=== PATIENT | male | born 1945 | race Caucasian/White ===

== ENCOUNTER → 2024-01-30 07:34 | Outpatient (REF) | payer MEDICARE, SELFPAY | LOC: EMG 07:34 | PROVIDERS: ATTENDING PHYSICIAN Internal Medicine | DX: E11.42 Type 2 diabetes mellitus with diabetic polyneuropathy (principal); R20.0 Anesthesia of skin; M54.16 Radiculopathy, lumbar region | CPT/HCPCS: 95886; 95911 ==

== ENCOUNTER → 2024-02-15 09:48 | Outpatient (REF) | payer MEDICARE, SELFPAY | LOC: RAD 09:48 | PROVIDERS: ATTENDING PHYSICIAN Internal Medicine; FAMILY PHYSICIAN Internal Medicine | DX: R19.02 Left upper quadrant abdominal swelling, mass and lump (principal) | CPT/HCPCS: 76700 ==

== ENCOUNTER 2024-02-23 22:40 | Inpatient (IN) | payer MEDICARE, SELFPAY ==
[2024-02-23 17:34] VITALS: BP 118/59
[2024-02-23 19:47] LABS: % Basophils 0.2 % (0-2); % Eosinophils 0.2 % (0-6); % Immature Granulocytes 1.4 % (0-0.5); % Lymphocytes 13.4 % (20.5-51.1); % Neutrophils 73.8 % (42.2-75.2); Absolute Immature Granulocytes 0.2 10^3/uL (0-0.05); Absolute Lymphocytes 2.3 10^3/uL (1.2-3.4); Absolute Monocytes 1.9 10^3/uL (0.1-0.6); Absolute Neutrophils 12.4 10^3/uL (1.4-6.5); Hematocrit 37.4 % (39.0-52.0); Hemoglobin 12.7 g/dL (13.0-18.0); Mean Corpuscular Hgb 30.9 pg (27.0-31.0); Mean Platelet Volume 8.9 fL (7.4-10.4); Nucleated Red Blood Cells % 0 % (-); Platelet Count 347 10^3/uL (130-400); Red Blood Cell Count 4.11 10^6/uL (4.70-6.10); Red Cell Dist. Width 13.2 % (11.5-14.5); White Blood Cell Count 16.8 10^3/uL (4.8-10.8)
[2024-02-23] MEDS: FLAGYL 500 MG 100 IV (19:50)
[2024-02-23 19:54] VITALS: BP 105/58
[2024-02-23 19:55] VITALS: BP 105/58
--- NOTE | 2024-02-23 19:57 | ED.GENMED ---
History of Present Illness
General
Chief Complaint: Abdominal Pain
Source: patient and family
Exam Limitations: none
Time Seen by Provider: 02/23/24 19:08
Nursing documentation reviewed up to this point in time: agreed with
Travel History
Have you had any contact with someone who has COVID-19?: No
Do you have any symptoms of coronavirus? Fever > 100 degrees, chills, cough, shortness of breath, sore throat, loss of taste or smell, muscle aches, or headache?: No
History of Present Illness
History of Present Illness:
Patient presents ED for evaluation after outpatient CT scan revealed possible perforation of the bowel. Patient states that he has had ongoing abdominal pain for the past 2 weeks. Abdominal pain described as pressure, around his bellybutton/left
side, nonradiating, without any alleviating factors, but worse when standing up. Denies fever or chills. Denies nausea, vomiting, or diarrhea. Patient reports having had normal bowel movement today. Denies previous history of similar symptoms.
Denies recent change in medications or diet. Denies difficulty with urination.
Past History
Past History
ED Past Medical History: Arrthythmia, CAD, Cancer, CHF and Other (Sarcoidosis, tinnitus)
ED Past Surgical History: Cardiac and Urological
Social History
Tobacco: Non-smoker
Review of Systems
Review of Systems
Allergies reviewed?: Yes
All Other Systems: ROS reviewed and negative except as documented in HPI and ROS
Constitutional: Reports no symptoms; Denies fever
EENT: Reports no symptoms
Respiratory: Reports no symptoms
Cardiac: Reports no symptoms
ABD/GI: Reports abdominal pain; Denies vomiting or diarrhea
: Reports no symptoms
Musculoskeletal: Reports no symptoms
Skin: Reports no symptoms
Neurological: Reports no symptoms
Phy Exam
Physical Exam
Physical Exam:
Physical Exam
General: mild distress, not acutely ill. afebrile
Head: nc/at. eomi
Neck: supple. no meningeal signs.
Heart: s1/s2 regular rate and rhythm, no murmur. equal radial pulses.
Lungs: no acute respiratory distress. clear bilaterally
Abdomen: normal bowel sounds. focal tenderness to palpation above umbilicus.
Neuro: alert and oriented. no focal neurological deficits
Skin: no rash
Psychiatric: well kept. interactive and cooperative
Extremities: no edema. no calf tenderness.
Course
Orders/Labs/Results
Orders:
Orders
02/23/24 19:19
MetroNIDAZOLE 500 MG/100 ML [Flagyl 500 mg] 100 ml IV NOW
02/23/24 19:22
0.9% Sodium Chloride 500 ml [Nss] 500 ml IV BOLUS
02/23/24 19:37
Complete Blood Count/With Diff Urgent
Comprehensive Metabolic Panel Urgent
Digoxin Urgent
Lactic Acid Q4H
Comment: CANCEL 2nd LACTIC ACID IF 1st LACTIC ACID IS LESS THAN 2
Magnesium Urgent
Blood Culture Q30M
KENJI Source: Blood/Venous
Specimen Description:
Blood Culture Q30M
KENJI Source: Blood/Venous
Specimen Description:
02/23/24 19:55
Add On- LAB Urgent
Tests Added?: digoxin level
02/23/24 22:22
Admit/Transfer Patient As Directed
Co-Sign Provider:
Level of Care: Inpatient admission
Assign to:: Telemetry
Physician / Group: Hospitalist
Diagnosis: Bowel Abscess
Reason for Telemetry: Arrhythmia
Date to Stop Telemetry: 02/26/24
Time to Stop Telemetry: 11:00
Reason for Hospitalization: Bowel Abscess
Expected length of stay greater than two midnights?: Yes
ELOS- Estimated Length of Stay in days: 5
I certify the patient meets the requirements for IP care: Yes
02/23/24 22:23
Code Status As Directed
Resuscitation Status: Full Code
02/24/24 00:07
0.9% Sodium Chloride 1000 ml [Nss] 1,000 ml IV 125 mls/hr
Dextrose 50%-Water [Dextrose 50% Syringe] 12.5 grams IV [id number] PRN
Glucagon [GlucaGen] 1 mg IM PRN PRN
LevoFLOXacin 500 MG/100 ML [Levaquin] 500 mg in 100 ml IV ONCE
Morphine Sulfate 2 mg IV Q4HPRN PRN
02/24/24 00:07
CARDIOLOGY CONSULT Routine
Consulting Provider: Shila Alexis
Was physician already notified: No
Reason for consult: Surgical clearance - sarcoid with complete heart block and afib.
Consult Notification Routine
Specialty to Notify: Cardiology
Prothrombin Time Routine
Activity As Directed
Activity Level: With Assistance
Bedside Glucose Monitoring As Directed
Frequency: AC&HS
Additional Instructions:: Change to q6h if pt on TPN, tube feeding or not eating
Pneumatic Compression Sleeves As Directed
Type: Knee high
Vital Signs As Directed
Frequency: Per unit guidelines
DX Deep Vein Thrombosis Video Routine
02/24/24 04:00
MetroNIDAZOLE 500 MG/100 ML [Flagyl 500 mg] 100 ml IV Q8H
02/24/24 Breakfast
NPO
Allow oral meds: No
Allow clear liquids: Sips of Clears
Basic Metabolic Panel IN AM
Complete Blood Count/No Diff IN AM
Glycohemoglobin (HgbA1c) IN AM
Prothrombin Time IN AM
02/24/24 07:30
Insulin Aspart Corrective Low [Novolog Flexpen-Low Resistance] See Protocol SC AC
02/26/24 11:00
DC Protocol for Telemetry ONCE
Abnormal Lab Results
02/23/24
19:37
WBC 16.8 H 10^3/uL
(4.8-10.8)
RBC 4.11 L 10^6/uL
(4.70-6.10)
Hgb 12.7 L g/dL
(13.0-18.0)
Hct 37.4 L %
(39.0-52.0)
Abs Immat Gran (auto) 0.2 H 10^3/uL
(0-0.05)
Absolute Neuts (auto) 12.4 H 10^3/uL
(1.4-6.5)
Absolute Monos (auto) 1.9 H 10^3/uL
(0.1-0.6)
Immature Gran % 1.4 H %
(0-0.5)
Lymphocytes % 13.4 L %
(20.5-51.1)
Monocytes % 11.0 H %
(1.7-9.3)
Sodium 131 L mmol/L
(135-145)
Carbon Dioxide 21 L mmol/L
(22-30)
BUN 26 H mg/dl
(9-20)
Creatinine 1.4 H mg/dL
(0.7-1.3)
Total Protein 6.0 L g/dl
(6.3-8.2)
Digoxin 0.4 L ng/ml
(0.8-2.0)
02/23/24 19:37
02/23/24 19:37
Vital Signs
Initial and Last Documented VS:
Initial Vital Signs
Temp Pulse Resp BP Pulse Ox
98.9 F 84 18 118/59 98
02/23/24 17:34 02/23/24 17:34 02/23/24 17:34 02/23/24 17:34 02/23/24 17:34
Last Documented Vital Signs
Temp Pulse Resp BP Pulse Ox
98.1 F 84 19 129/67 97
02/24/24 00:13 02/24/24 00:13 02/24/24 00:13 02/24/24 00:13 02/24/24 00:13
MDM/Problems Addressed
MDM/Problems Addressed:
CT report reviewed and discussed with (surgery). Requests admission on iv abx, continue levaquin/flagyl, and will discuss treatment options after consultation, including potential IRAD drainage.
*Critical Care Note
Total Time (30-74mins, 75-104mins- exclusive of procedures): Not Applicable
ED Attending Note
-
Portions of this chart may have been created with voice recognition software.� Occasional wrong word or��sound alike� substitutions may have occurred due to the inherent limitations of voice recognition software.
Discharge Plan
Departure
Patient Disposition: Admit
Date of Disposition: 02/23/24
Time of Disposition: 21:19
Presentation/result/management discussed w/ accepting MD/DO: Hospitalist
Discharge Problem:
Perforated bowel
Interventions
Interventions:
*Risk Screen - Suicide Last Done: 02/23/24 17:34
*General Assessment Last Done: 02/23/24 17:34
*Neglect/Abuse Screening Last Done: 02/23/24 17:34
ED- Fall Risk Assessment Last Done: 02/24/24 00:09
*ED COVID-19 Vaccine History Last Done: 02/23/24 17:34
*Nursing Disposition Last Done: 02/24/24 00:09
BO-Jqdphp-Nuucrsbgmt Assessment Last Done: 02/23/24 21:29
Discharge Date and Time
Discharge Date/Time: 02/24/24 00:09
[2024-02-23 19:59] LABS: Lactic Acid 0.9 mmol/L (0.7-2.0)
[2024-02-23 20:00] VITALS: BP 103/58
[2024-02-23 20:06] LABS: ALT (SGPT) 11 U/L (0-50); AST (SGOT) 20 U/L (17-59); Alkaline Phosphatase 38 U/L (38-126); Blood Urea Nitrogen 26 mg/dl (9-20); Calcium 9.9 mg/dl (8.4-10.2); Carbon Dioxide 21 mmol/L (22-30); Chloride 102 mmol/L (98-107); Glucose 86 mg/dl (70-99); Potassium 3.7 mmol/L (3.5-5.1); Sodium 131 mmol/L (135-145); Total Bilirubin 0.7 mg/dl (0.2-1.3); eGFR 51.45
[2024-02-23 20:11] LABS: Albumin 3.6 g/dl (3.5-5.0)
[2024-02-23 20:28] LABS: Digoxin 0.4 ng/ml (0.8-2.0)
[2024-02-23] MEDS: NSS 500 IV (20:49)
[2024-02-23 21:00] VITALS: BP 114/61
--- NOTE | 2024-02-23 21:52 | HPS.HSE ---
Family Physician
-
Family Physician: Mark Donnelly
Chief Complaint
-
Abd pain
History of Present Illness
78 man comes to the ED after an outpatient CT scan revealed possible perforation of the bowel. He says that he has had ongoing abdominal pain for the past 2 weeks. The pain is described as pressure, wors around his bellybutton/left side,
non-radiating, without any alleviating factors, but worse when standing up. He Denies fever or chills, nausea, vomiting, or diarrhea. He states that he is having had normal bowel movements and had one today. He denies previous history of similar
symptoms, recent change in medications or diet or difficulty with urination. He does have a history of sarcoid and had complete heart block. He is pacer dependent and has 'had 7 pacemakers.' He was comfortable during my interview.
Medical History
Past Medical History
Past Medical History: Reports Other
Additional Past Medical History:
Arrthythmia (persistent afib),
CAD,
prostate Cancer (age 50),
CHF
Sarcoidosis,
tinnitus
ICD (implantable cardioverter-defibrillator) in place
Type 2 diabetes mellitus without complication, without long-term current use of insulin
History of right shoulder replacement
Essential hypertension
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
Mixed hyperlipidemia
Elevated serum creatinine
Neuropathy
Dysphagia, unspecified type
Past Surgical History: Reports Other
Additional Past Surgical History:
See above
Social History
Tobacco: Non-smoker
Alcohol: None
Drug: None
Personal:
Living: With Family
Family History
Family History: Not pertinent
Allergies / Home Medications
Allergies reflects when Allergies were last updated in [facility].
Home Medications with original date entered in [facility]
Allergy/Medication List:
Allergies
Allergy/AdvReac Type Severity Reaction Status Date / Time
Penicillins Allergy as a baby Verified 02/23/24 17:37
-
tolerates
ceftriaxone
Home Medications
digoxin 125 mcg (0.125 mg) tablet (Digitek) 0.125 mg PO DAILY Arrhythmia 03/18/14
fenofibrate nanocrystallized 145 mg tablet 145 mg PO DAILY High cholesterol 03/18/14
carvedilol 6.25 mg tablet 6.25 mg PO BID Blood pressure 02/08/23
irbesartan 150 mg-hydrochlorothiazide 12.5 mg tablet 1 tab PO DAILY Blood pressure 02/08/23
metformin 1,000 mg tablet 1,000 mg PO DAILY Diabetes 02/08/23
warfarin 5 mg tablet 2.5 mg PO HS Blood clot prevention/tx 02/08/23
cyanocobalamin (vitamin B-12) 2,500 mcg sublingual tablet 2,500 mcg sublingual DAILY 02/23/24
krill oil 750 mg PO DAILY 02/23/24
levofloxacin 500 mg tablet 500 mg PO DAILY 02/23/24
metronidazole 500 mg tablet 500 mg PO TID 02/23/24
gpnkdiezallq-iicqhowb-nacxua tablet 1 tab PO DAILY 02/23/24
polyethylene glycol 3350 17 gram oral powder packet (Miralax) 17 g PO DAILY PRN constipation 02/23/24
Review of Systems
-
History Source: Patient
A 12 point ROS was completed and negative except as noted: Yes
Physical Exam
Vital Signs
Vital Signs
Temp Pulse Resp BP Pulse Ox
98.1 F 80 20 114/61 99
02/23/24 19:55 02/23/24 21:15 02/23/24 21:15 02/23/24 21:00 02/23/24 21:15
Physical Exam
General: Well Developed, Well Nourished, No Apparent Distress, Comfortable and Conversant
HEENT: Nose Appears Normal, Ears Appear Normal and Hearing Impaired
Respiratory: Clear and Decreased Breath Sounds
Cardiac: S1/S2 and Irregular Rhythm
GI: Soft and Tender (LLQ, and umbilical area, no rebound)
Musculoskeletal: No Clubbing, No Cyanosis and No Edema
Skin: Warm and Dry
Neuro: Awake, Alert, Oriented and AO x 3
Psych: Calm
Laboratory Results
-
02/23/24 19:37
02/23/24 19:37
Laboratory Results
Lactic Acid 0.9 mmol/L (0.7-2.0) 02/23/24 19:37
Total Bilirubin 0.7 mg/dl (0.2-1.3) 02/23/24 19:37
AST 20 U/L (17-59) 02/23/24 19:37
ALT 11 U/L (0-50) 02/23/24 19:37
Alkaline Phosphatase 38 U/L (38-126) 02/23/24 19:37
Data Reviewed
-
Lab Data: Labs Reviewed by me
Impression/Plan
-
IMPRESSION:
78 man with 2 weeks of abd pain and an outpatient CT that shows:
Anterior midline central abdominal collection measuring up to 6.6 cm.
Differential includes contained small bowel perforation/abscess versus necrotic tumor.
No bowel obstruction. No free air or free fluid.
Diverticulosis without acute diverticulitis.
No obstructive uropathy.
PLAN:
1. CT finding, see differential above.
NPO
Surgical consult
IV antibiotics (levaquin / flagyl)
2. Coagulopathy on coumadin
Check INR
Will need heparin bridge if surgery is needed.
3. Pacemaker dependent, total heart block with afib
Cardiology consult for pre-surgical clearance
4. Diabetes, now NPO
Hold oral DM meds
Use supplemental insulin if needed
5. BUN/Creat ration > 20
IV saline overnight
Rpeat in am
6. Sodium 131 - likely hypovolemic hyponatremia, no food for 2 days
IV saline
Repeat in am
7. On digoxin
Hold while NPO
Resume after surgery
Full code
VCD for DVTp
--- NOTE | 2024-02-23 22:21 | HPS.HSE ---
Family Physician
-
Family Physician: Mark Donnelly
Medical History
Allergies / Home Medications
Allergies reflects when Allergies were last updated in [facility].
Home Medications with original date entered in [facility]
Physical Exam
Vital Signs
Vital Signs
Temp Pulse Resp BP Pulse Ox
98.1 F 80 20 114/61 99
02/23/24 19:55 02/23/24 21:15 02/23/24 21:15 02/23/24 21:00 02/23/24 21:15
Laboratory Results
-
02/23/24 19:37
02/23/24 19:37
Laboratory Results
Lactic Acid 0.9 mmol/L (0.7-2.0) 02/23/24 19:37
Total Bilirubin 0.7 mg/dl (0.2-1.3) 02/23/24 19:37
AST 20 U/L (17-59) 02/23/24 19:37
ALT 11 U/L (0-50) 02/23/24 19:37
Alkaline Phosphatase 38 U/L (38-126) 02/23/24 19:37
Impression/Plan
-
IMPRESSION:
PLAN:
[2024-02-24] VITALS (7 sets, daily range): BP systolic 111–138; BP diastolic 63–73; BMI 23.4
[2024-02-24] MEDS: NSS 1000 IV (00:17)
[2024-02-24] MEDS: LEVAQUIN 100 IV (00:37)
--- NOTE | 2024-02-24 00:52 | PTCARENOTE ---
Received patient from ED, AAOx4, Ambulated with steady gait from stretcher to bed. Oriented to unit, call stern in reach. Plan of care continues.
[2024-02-24] MEDS: FLAGYL 500 MG 100 IV ×3 (03:56→19:55)
[2024-02-24 05:32] LABS: Hematocrit 36.5 % (39.0-52.0); Mean Corp Hgb Conc. 32.9 g/dL (33.0-37.0); Mean Corpuscular Hgb 30.9 pg (27.0-31.0); Mean Corpuscular Volume 94.1 fL (80.0-94.0); Platelet Count 313 10^3/uL (130-400); Red Blood Cell Count 3.88 10^6/uL (4.70-6.10); Red Cell Dist. Width 13.1 % (11.5-14.5); White Blood Cell Count 14.6 10^3/uL (4.8-10.8)
[2024-02-24 05:43] LABS: INR 2.52; PT 27.4 Sec (11.4-14.6)
[2024-02-24 05:48] LABS: Glucose - Point of Care 82 mg/dl (70-99)
[2024-02-24 06:08] LABS: Blood Urea Nitrogen 21 mg/dl (9-20); Calcium 9.5 mg/dl (8.4-10.2); Carbon Dioxide 22 mmol/L (22-30); Chloride 106 mmol/L (98-107); Estimated Creatinine Clearance 49 ml/min; Glucose 77 mg/dl (70-99); Potassium 3.9 mmol/L (3.5-5.1); Sodium 135 mmol/L (135-145); eGFR > 60.00
--- NOTE | 2024-02-24 08:30 | W.PN.HOSP.TC ---
Today's Communication/Plan
-
see bold
Assessment / Plan
Assessment / Plan
HPI: 78 man comes to the ED after an outpatient CT scan revealed possible perforation of the bowel. He says that he has had ongoing abdominal pain for the past 2 weeks. The pain is described as pressure, wors around his bellybutton/left side,
non-radiating, without any alleviating factors, but worse when standing up. He Denies fever or chills, nausea, vomiting, or diarrhea. He states that he is having had normal bowel movements and had one today. He denies previous history of similar
symptoms, recent change in medications or diet or difficulty with urination. He does have a history of sarcoid and had complete heart block. He is pacer dependent and has 'had 7 pacemakers.' He was comfortable during my interview.
#Small bowel prior with fluid collection on CT concerning for abscess
Appreciate general surgery input, recommend clear liquid diet, IV antibiotics, hold Coumadin
After INR is less than 2, consult IR for drain
Trend fever and white count
#Paroxysmal atrial fibrillation on Coumadin
Continue amiodarone, Coreg
Hold Coumadin for procedure
#History of dysphagia
Eats a chopped diet
#Glucose intolerance
Hold metformin since pt received contrast 02/22, sliding scale insulin
#History of complete heart block
Has pacer defibrillator
#History of coronary artery disease/congestive heart failure
DVT prophylaxis�hold Coumadin for procedure, SCDs
Full Code
Physical Exam
General: No acute distress
HEENT: Normocephalic, Atraumatic, EOMI, MMM
Respiratory: Clear to Auscultation bilaterally
Cardiac: Normal S1/S2, Regular Rate and Rhythm
GI: Soft, tender at the mid left side, no masses guarding or rebound
Extremities: No Clubbing, Cyanosis, or Edema
Neuro: Nonfocal/Grossly Intact
Psych: Calm, Cooperative
Derm: No Visible lesions
Anticipated Discharge: 24 - 48 hours
Subjective/Interval History
-
Date of Service: February 24, 2024
Patient reports that his abdominal pain is tolerable. No fever, no nausea, no vomiting. No chest pain, no shortness of breath.
Objective Data
-
Labs:
Laboratory Results
02/24/24 02/24/24 02/24/24
00:07 05:12 05:13
WBC 14.6 H
Hgb 12.0 L
Hct 36.5 L
Plt Count 313
PT Cancelled 27.4 H
INR Cancelled 2.52
Sodium 135
Potassium 3.9
Chloride 106
Carbon Dioxide 22
BUN 21 H
Creatinine 1.2
Glucose 77
Calcium 9.5
Vital Signs:
Vital Signs
Temp Pulse Resp BP Pulse Ox
97.4 F 84 19 128/69 98
02/24/24 03:22 02/24/24 03:22 02/24/24 03:22 02/24/24 03:22 02/24/24 03:22
I&O
02/23/24 02/24/24 02/25/24
06:59 06:59 06:59
Intake Total 0 / 0
Balance 0 / 0
[2024-02-24 08:53] LABS: Glycohemoglobin (HgbA1c) 6.5 % (4.0-5.6)
--- NOTE | 2024-02-24 11:27 | CON.GS ---
Addendum entered and electronically signed by Davion Ortega MD 02/24/24 13:06:
I saw and examined the patient.
The Noise Tester's note was reviewed and I agree with the note.
Comment: Several weeks of abd pain without obstructive symptoms; outpt CT showed intraabdominal collection abutting sb and ab wall. Possible etiologies include perforated sb diverticulitis with contained abscess, malignancy, or other. Exam with
palpable mass at area of concern, ttp at this location but not elsewhere on the abdomen. Clinically stable, on warfarin with therapeutic INR. We discussed options for surgical and non-surgical mgmt. Given his cardiac history, he has a strong
preference to avoid surgery if possible.
Plan: CLD, IV abx, hold warfarin. When INR is <2, would proceed with IR drain. I advised the pt that this drain may lead to the development of an EC fistula. If this occurs, the fistula may heal without surgery or it may ultimately require surgery.
On the other hand, if the perforation has already sealed, we may be able to evacuate the collection with the drain and ultimately DC the drain without the development of ECF. In that case no further invasive mgmt would be required. He verbalized
understanding, all questions answered. NPO@NC in case he is able to get the drain tomorrow.
Original Note:
Consultation
-
Date/Time Consultation Requested: 02/24/24 1100
Requesting Provider: Do
Performing Provider: Nany Ortega
Medical History
-
Chief Complaint: Abdominal pain
History of Present Illness:
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 He had some mild
discomfort followed by sudden and severe sharp pain about 3 weeks ago. Since that time, he has had tenderness and discomfort. There is a palpable firmness at the location of tenderness a few inches above the umbilicus. He was undergoing outpatient
work up with his PCP which began earlier this week. He was trying clear liquids until CT imaging could be obtained, but notes that this did not help his pain. He had his outpatient CT yesterday with abnormal findings of abdominal fluid collection
and was advised to present through the ED for treatment. He denies nausea or vomiting. He has been passing flatus and stringy loose stools. He notes no fevers or chills.
Past Medical History
Past Medical History: Arrhythmias (afib on coumadin), CAD, CHF, HTN, NIDDM and Other (vertigo: following with ENT at [facility] for left ear with prior hospitalization for tympanic rupture, Sarcoid)
Past Surgical History: Cardiac (AICD (PPM since his 30's with multiple replacements)), Orthopedic (right shoulder) and Urological (transabdominal prostatectomy)
Social History
Tobacco: Non-Smoker
Alcohol: None
Family History
Family History: Reviewed & Not Pertinent
Allergies / Home Medications
Allergy/AdvReac Type Severity Reaction Status Date / Time
Penicillins Allergy as a baby Verified 02/23/24 17:37
-
tolerates
ceftriaxone
�Medication �Instructions �Recorded �Confirmed �Type
digoxin 125 mcg (0.125 mg) tablet 0.125 mg PO DAILY Arrhythmia 03/18/14 02/23/24 History
(Digitek)
fenofibrate nanocrystallized 145 145 mg PO DAILY High cholesterol 03/18/14 02/23/24 History
mg tablet
carvedilol 6.25 mg tablet 6.25 mg PO BID Blood pressure 02/08/23 02/23/24 History
irbesartan 150 1 tab PO DAILY Blood pressure 02/08/23 02/23/24 History
mg-hydrochlorothiazide 12.5 mg
tablet
metformin 1,000 mg tablet 1,000 mg PO DAILY Diabetes 02/08/23 02/23/24 History
warfarin 5 mg tablet 2.5 mg PO HS Blood clot 02/08/23 02/23/24 History
prevention/tx
cyanocobalamin (vitamin B-12) 2,500 mcg sublingual DAILY 02/23/24 02/23/24 History
2,500 mcg sublingual tablet Supplement
krill oil 750 mg PO DAILY Supplement 02/23/24 02/23/24 History
levofloxacin 500 mg tablet 500 mg PO DAILY Infection 02/23/24 02/23/24 History
metronidazole 500 mg tablet 500 mg PO TID Infection 02/23/24 02/23/24 History
kvlybfkytchp-iyzoypar-zesbzg tablet 1 tab PO DAILY Supplement 02/23/24 02/23/24 History
polyethylene glycol 3350 17 gram 17 g PO DAILY PRN constipation 02/23/24 02/23/24 History
oral powder packet (Miralax)
Review of Systems
-
History Source: Patient
All other systems: Negative unless noted
A 10 point review of systems was completed, and was negative except as per HPI.
Physical Exam
Vital Signs
Temp Pulse Resp BP Pulse Ox
98 F 83 18 138/73 100
02/24/24 08:36 02/24/24 08:36 02/24/24 08:36 02/24/24 08:36 02/24/24 08:36
02/23/24 02/24/24 02/25/24
06:59 06:59 06:59
Actual Weight 69.853 kg
Body Mass Index (BMI) 23.4
Lab Results
02/24/24 05:13
02/24/24 05:13
WBC 14.6 10^3/uL (4.8-10.8) H 02/24/24 05:13
Hgb 12.0 g/dL (13.0-18.0) L 02/24/24 05:13
Hct 36.5 % (39.0-52.0) L 02/24/24 05:13
Plt Count 313 10^3/uL (130-400) 02/24/24 05:13
Abs Immat Gran (auto) 0.2 10^3/uL (0-0.05) H 02/23/24 19:37
Neutrophils % 73.8 % (42.2-75.2) 02/23/24 19:37
Physical Exam
General: Well Developed and Well Nourished
HEENT: Moist Mucous Membranes
Respiratory: Non Labored Respirations
GI: Soft, Tender (upper midline) and Other (palpable firmess to upper midline abd )
Skin: Warm and Dry
Neuro: Awake, Alert and AO x 3
Psych: Calm
Data Reviewed
-
CT Scan: Image Personally Visualized and interpreted, Report Reviewed by me, Discussed with Physician and Discussed with Patient
Labs: Labs Reviewed by me, Discussed with Physician and Discussed with Patient
Old Records: Reviewed
Assessment / Plan
-
Assessment:
78 yo male with a h/o PPM, AFib on Coumadin (therapeutic INR of 2.52), CAD, NIDDM with neuropathy of the left leg, vertigo and transabdominal prostatectomy 18 years ago for prostate ca presents through the ED with 3 week history of upper mid
abdominal pain. He had some mild discomfort followed by sudden and severe sharp pain about 3 weeks ago. Since that time, he has had tenderness and discomfort to the upper abdomen managed with Tylenol at home, denies regular NSAID use. Outpatient CT
demonstrated an abdominal fluid collection: 5.1x6.6x5.6 likely abscess with possible fistula. Unclear etiology, suspect perforated Meckel's diverticulum vs less likely necrotic tumor. AFVSS. Leukocytosis present.
Plan:
Options discussed with patient including surgical exploration vs less invasive management with IR drainage and antibiotics. Opting at this time for management with IV abx and drain placement
Hold warfarin and follow INR's
IR drainage of abscess once INR low enough for procedure
Continue IV abx
Ok for clear liquids today
Medical management as per primary team
[2024-02-24] MEDS: NSS IV (11:29)
[2024-02-24 12:58] LABS: Glucose - Point of Care 116 mg/dl (70-99)
[2024-02-24] MEDS: LANOXIN 125 MCG PO (16:24)
[2024-02-24] MEDS: COREG 6.25 MG PO ×2 (16:24→19:55)
[2024-02-24] MEDS: THERAGRAN 1 TABLET PO (16:25)
[2024-02-24 17:00] LABS: Glucose - Point of Care 136 mg/dl (70-99)
--- NOTE | 2024-02-24 17:43 | CM ---
met with patient at bedside.he lives with his in house with l1 lisbeth,his bed and bath is on the first level,he amb i and is I with his adl's.he does have a cane and walker but doers not use them .his pcp is dr yary carrera and he uses [facility]
pharmacy in [place].he has never had a vn or been to ip rehab in past.patient is adm with small bowel abscess.he has a small bowel fluid collecltion and drain will be placed by ir.he is on clear liquids,iv abx,.plan home with vn vs home with no
needs.
[2024-02-24 21:12] LABS: Glucose - Point of Care 114 mg/dl (70-99)
[2024-02-24] MEDS: LEVAQUIN 50 IV (21:17)
[2024-02-25 03:31] VITALS: BP 118/73
[2024-02-25] MEDS: FLAGYL 500 MG 100 IV ×3 (04:59→19:38)
[2024-02-25 06:00] VITALS: BMI 23.2
[2024-02-25 06:10] LABS: Glucose - Point of Care 95 mg/dl (70-99)
[2024-02-25 07:25] VITALS: BP 122/69
--- NOTE | 2024-02-25 07:53 | W.PN.HOSP.TC ---
Today's Communication/Plan
-
Clear liquid diet today, n.p.o. after midnight
Vitamin K 5 mg p.o. x 1
Assessment / Plan
Assessment / Plan
HPI: 78 man comes to the ED after an outpatient CT scan revealed possible perforation of the bowel. He says that he has had ongoing abdominal pain for the past 2 weeks. The pain is described as pressure, wors around his bellybutton/left side,
non-radiating, without any alleviating factors, but worse when standing up. He Denies fever or chills, nausea, vomiting, or diarrhea. He states that he is having had normal bowel movements and had one today. He denies previous history of similar
symptoms, recent change in medications or diet or difficulty with urination. He does have a history of sarcoid and had complete heart block. He is pacer dependent and has 'had 7 pacemakers.' He was comfortable during my interview.
#Small bowel prior with fluid collection on CT concerning for abscess
Appreciate general surgery input, clear liquid diet, IV antibiotics, hold Coumadin
INR 2.42 today, was 2.52 yesterday
He is on levofloxacin which will make INR higher, give vitamin K 5 mg p.o. x 1
After INR is less than 2, plan for abdominal drain with IR
Trend fever and white count
#Paroxysmal atrial fibrillation on Coumadin
Continue amiodarone, Coreg
Hold Coumadin for procedure
#History of dysphagia
Eats a chopped diet
#Glucose intolerance
Hold metformin since pt received contrast 02/22, sliding scale insulin
Likely can resume 02/25 after procedure
#History of complete heart block
Has pacer defibrillator
#History of coronary artery disease/congestive heart failure
DVT prophylaxis�hold Coumadin for procedure, SCDs
Full Code
Total time spent to see the patient on the floor, examine the patient, review data and lab results, discuss treatment plan with patient, nursing staff around 50 minutes.
Physical Exam
General: No acute distress
HEENT: Normocephalic, Atraumatic, EOMI, MMM
Respiratory: Clear to Auscultation bilaterally
Cardiac: Normal S1/S2, Regular Rate and Rhythm
GI: Soft, tender at the mid left side, no masses guarding or rebound
Extremities: No Clubbing, Cyanosis, or Edema
Neuro: Nonfocal/Grossly Intact
Anticipated Discharge: > 48 hours
Subjective/Interval History
-
Date of Service: February 25, 2024
Abdominal pain tolerable, not worse with clear liquid diet yesterday. No fever, no chest pain, no shortness of breath. He is passing gas, no nausea, no vomiting.
Objective Data
-
Labs:
Laboratory Results
02/25/24
07:16
WBC Pending
Hgb Pending
Hct Pending
Plt Count Pending
PT Pending
INR Pending
Sodium Pending
Potassium Pending
Chloride Pending
Carbon Dioxide Pending
BUN Pending
Creatinine Pending
Glucose Pending
Calcium Pending
Vital Signs:
Vital Signs
Temp Pulse Resp BP Pulse Ox
97.7 F 84 19 118/73 98
02/25/24 03:31 02/25/24 03:31 02/25/24 03:31 02/25/24 03:31 02/25/24 03:31
I&O
02/24/24 02/25/24 02/26/24
06:59 06:59 06:59
Intake Total 0 / 0 2290 / 2290
Output Total 3850 / 3850
Balance 0 / 0 -1560 / -1560
[2024-02-25 08:10] LABS: INR 2.42; PT 26.2 Sec (11.4-14.6)
[2024-02-25 08:11] LABS: Hematocrit 37.9 % (39.0-52.0); Hemoglobin 12.5 g/dL (13.0-18.0); Mean Corpuscular Hgb 31.3 pg (27.0-31.0); Mean Corpuscular Volume 94.8 fL (80.0-94.0); Mean Platelet Volume 9.5 fL (7.4-10.4); Platelet Count 348 10^3/uL (130-400); Red Cell Dist. Width 13.1 % (11.5-14.5); White Blood Cell Count 11.6 10^3/uL (4.8-10.8)
[2024-02-25 08:36] LABS: Glucose - Point of Care 113 mg/dl (70-99)
[2024-02-25 08:44] LABS: Blood Urea Nitrogen 15 mg/dl (9-20); Calcium 9.1 mg/dl (8.4-10.2); Carbon Dioxide 21 mmol/L (22-30); Chloride 109 mmol/L (98-107); Estimated Creatinine Clearance 65 ml/min; Glucose 96 mg/dl (70-99); Phosphorus 2.8 mg/dl (2.5-4.5); Potassium 4.1 mmol/L (3.5-5.1); Sodium 136 mmol/L (135-145); eGFR > 60.00
[2024-02-25] MEDS: FLUSH (NSS) 1 FLUSH IV (08:53)
[2024-02-25] MEDS: COREG 6.25 MG PO ×2 (08:53→19:37)
[2024-02-25] MEDS: VITAMIN B-12 2500 MCG PO (08:54)
--- NOTE | 2024-02-25 10:35 | W.PN.GS2 ---
Addendum entered and electronically signed by Mateo Rosado MD 02/25/24 13:11:
I saw and examined the patient.
The PA's note was reviewed and I agree with the note.
Comment:
No overnight events, no N/V, passing flatus, pain controlled
AFVSS, ABD S/ND/mildly to moderately TTP in the periumbilical quadrant, no R/G
WBC 11.6, from 14.6, Cr 0.9, INR 2.4
� Continue n.p.o. with IVF, okay for moist swabs and p.o. meds
� Continue pain control with Tylenol, Oxy and morphine as needed
� Continue home meds
� Continue IV Levaquin/Flagyl
�Awaiting IR guided drainage once INR normalizes
� Hold DVT PPx; INR remains elevated, repeat in a.m.
� OOB/IS
� Appreciate hospitalist; currently stable, no indication for acute surgical intervention, continue nonop measures
Original Note:
Today's Communication / Plan
-
Continue ABX
Trend INR
Assessment / Plan
-
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 CT showed
intraabdominal collection abutting the small bowel and abdominal wall. Unclear etiology although likely small bowel diverticulitis. Malignancy remains in differential.
AFVSS
Labs stable with WBC trending down.
Pain only with palpation of abdomen
--Would not advance diet beyond clears
--Hold warfarin and trend INR's
--IR drainage of abscess once INR <2, may ultimately require surgery pending course but no surgical intervention planned at this time
--Multimodal analgesics prn
--Medical management as per primary team
Subjective Data
-
Date of Service: February 25, 2024
Patient seen and examined at bedside with Dr. Rosado. Denies n/v. Passing flatus. Abdominal pain only with palpation of abdomen, otherwise no discomfort.
Objective Data
-
Intake and Output
02/24/24 02/25/24 02/26/24
06:59 06:59 06:59
Intake Total 0 / 0 2290 / 2290
Output Total 3850 / 3850
Balance 0 / 0 -1560 / -1560
Intake:
Oral fluids 0 / 0 1440 / 1440
IV fluids (Total) 500 / 500
IV piggybacks 350 / 350
Output:
Urine, Voided 3850 / 3850
Other:
Number of approximated MODERATE 1
amounts of urine
Vital Signs
Temp Pulse Resp BP Pulse Ox
97.7 F 82 18 122/69 97
02/25/24 07:25 02/25/24 08:53 02/25/24 07:25 02/25/24 08:53 02/25/24 07:25
Lab Results
02/25/24 07:16
02/25/24 07:16
Calcium 9.1 mg/dl (8.4-10.2) 02/25/24 07:16
Phosphorus 2.8 mg/dl (2.5-4.5) 02/25/24 07:16
Magnesium 2.0 mg/dl (1.6-2.3) 02/25/24 07:16
Total Bilirubin 0.7 mg/dl (0.2-1.3) 02/23/24 19:37
AST 20 U/L (17-59) 02/23/24 19:37
ALT 11 U/L (0-50) 02/23/24 19:37
Alkaline Phosphatase 38 U/L (38-126) 02/23/24 19:37
Total Protein 6.0 g/dl (6.3-8.2) L 02/23/24 19:37
Albumin 3.6 g/dl (3.5-5.0) 02/23/24 19:37
Physical Exam
-
NAD
ABD soft, tender to the upper abdomen just left of midline with palpable area of fluctuance
[2024-02-25] MEDS: THERAGRAN 1 TABLET PO (10:46)
[2024-02-25 11:16] VITALS: BMI 23.2
[2024-02-25 11:20] VITALS: BP 113/65
[2024-02-25 11:54] LABS: Glucose - Point of Care 138 mg/dl (70-99)
[2024-02-25] MEDS: LANOXIN 125 MCG PO (12:54)
[2024-02-25] MEDS: MEPHYTON 5 MG PO (12:54)
[2024-02-25 15:25] VITALS: BP 115/67
[2024-02-25 17:05] LABS: Glucose - Point of Care 114 mg/dl (70-99)
[2024-02-25] MEDS: LEVAQUIN 50 IV (21:11)
[2024-02-25 23:09] LABS: Glucose - Point of Care 165 mg/dl (70-99)
[2024-02-25 23:22] VITALS: BP 112/70
[2024-02-26] VITALS (7 sets, daily range): BP systolic 80–139; BP diastolic 63–76; BMI 23.3
[2024-02-26] MEDS: FLAGYL 500 MG 100 IV ×3 (04:48→20:33)
[2024-02-26 05:53] LABS: Glucose - Point of Care 100 mg/dl (70-99)
[2024-02-26 08:23] LABS: Glucose - Point of Care 103 mg/dl (70-99)
[2024-02-26] MEDS: COREG 6.25 MG PO ×2 (08:28→20:32)
[2024-02-26] MEDS: VITAMIN B-12 2500 MCG PO (08:29)
[2024-02-26] MEDS: FLUSH (NSS) 1 FLUSH IV (08:29)
[2024-02-26] MEDS: THERAGRAN 1 TABLET PO (08:29)
[2024-02-26 08:37] LABS: Hematocrit 38.2 % (39.0-52.0); Hemoglobin 12.5 g/dL (13.0-18.0); Mean Corp Hgb Conc. 32.7 g/dL (33.0-37.0); Mean Corpuscular Hgb 30.6 pg (27.0-31.0); Mean Corpuscular Volume 93.6 fL (80.0-94.0); Mean Platelet Volume 9.1 fL (7.4-10.4); Platelet Count 387 10^3/uL (130-400); Red Blood Cell Count 4.08 10^6/uL (4.70-6.10); Red Cell Dist. Width 13.2 % (11.5-14.5); White Blood Cell Count 11.3 10^3/uL (4.8-10.8)
[2024-02-26 08:44] LABS: INR 1.77; PT 20.5 Sec (11.4-14.6)
[2024-02-26 08:54] LABS: Blood Urea Nitrogen 14 mg/dl (9-20); Calcium 9.4 mg/dl (8.4-10.2); Carbon Dioxide 23 mmol/L (22-30); Chloride 109 mmol/L (98-107); Estimated Creatinine Clearance 65 ml/min; Glucose 105 mg/dl (70-99); Magnesium 1.9 mg/dl (1.6-2.3); Phosphorus 2.7 mg/dl (2.5-4.5); Potassium 3.9 mmol/L (3.5-5.1); Sodium 136 mmol/L (135-145); eGFR > 60.00
--- NOTE | 2024-02-26 10:22 | W.PN.GS2 ---
Addendum entered and electronically signed by Mateo Rosado MD 02/26/24 10:51:
I saw and examined the patient.
The RETAIL SALESWORKER's note was reviewed and I agree with the note.
Comment:
No overnight events, no N/V, passing flatus, pain controlled
AFVSS, ABD S/ND/mildly TTP in the periumbilical quadrant, no R/G
WBC 11.3, from 11.6, Cr 0.9, INR 1.7
� Continue n.p.o. with IVF, okay for moist swabs and p.o. meds; ok for clears after IR drain
� Continue pain control with Tylenol, Oxy and morphine as needed
� Continue home meds
� Continue IV Levaquin/Flagyl
� IR guided drainage today
� Hold DVT PPx; start after IR-guided until INR becomes therapeutic
� OOB/IS
� Appreciate hospitalist; currently stable, no indication for acute surgical intervention, continue nonop measures
Original Note:
Today's Communication / Plan
-
IR drainage
Assessment / Plan
-
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 CT showed
intraabdominal collection abutting the small bowel and abdominal wall. Unclear etiology although likely small bowel diverticulitis. Malignancy remains in differential.
AFVSS
Mild leukocytosis
INR now subtherapeutic
Pain only with palpation of abdomen
--Clears
--IR drainage of abscess, may ultimately require surgery pending course but no surgical intervention planned at this time (reached out to IR cobol application developer to notify of this AM's INR level)
--Continue to hold warfarin
--Multimodal analgesics prn
--Medical management as per primary team
Subjective Data
-
Date of Service: February 26, 2024
Patient seen and examined at bedside with Dr. Rosado. Denies n/v. No changes to pain. Passing flatus, no BM today.
Objective Data
-
Intake and Output
02/25/24 02/26/24 02/27/24
06:59 06:59 06:59
Intake Total 2290 / 2290 1940 / 1940
Output Total 3850 / 3850 1300 / 1300
Balance -1560 / -1560 640 / 640
Intake:
Oral fluids 1440 / 1440 1590 / 1590
IV fluids (Total) 500 / 500
IV piggybacks 350 / 350 350 / 350
Output:
Urine, Voided 3850 / 3850 1300 / 1300
Other:
Number of approximated MODERATE 1
amounts of urine
Number of approximated LARGE 2
amounts of urine
Vital Signs
Temp Pulse Resp BP Pulse Ox
97.6 F 83 16 121/75 99
02/26/24 07:03 02/26/24 08:28 02/26/24 07:03 02/26/24 08:28 02/26/24 07:03
Lab Results
02/26/24 08:09
02/26/24 08:09
Calcium 9.4 mg/dl (8.4-10.2) 02/26/24 08:09
Phosphorus 2.7 mg/dl (2.5-4.5) 02/26/24 08:09
Magnesium 1.9 mg/dl (1.6-2.3) 02/26/24 08:09
Total Bilirubin 0.7 mg/dl (0.2-1.3) 02/23/24 19:37
AST 20 U/L (17-59) 02/23/24 19:37
ALT 11 U/L (0-50) 02/23/24 19:37
Alkaline Phosphatase 38 U/L (38-126) 02/23/24 19:37
Total Protein 6.0 g/dl (6.3-8.2) L 02/23/24 19:37
Albumin 3.6 g/dl (3.5-5.0) 02/23/24 19:37
Physical Exam
-
NAD
ABD soft, tender to the upper abdomen just left of midline with palpable area of fluctuance
[2024-02-26 11:20] LABS: Glucose - Point of Care 114 mg/dl (70-99)
--- NOTE | 2024-02-26 11:32 | PTCARENOTE ---
Pt transported to IR at this time with chart.
--- NOTE | 2024-02-26 13:30 | PTCARENOTE ---
Received report from Shilpa in IR. Pt arrived back to rm [id number] at this time. Pt AAOx3, lungs are CTA, vital signs noted and documented. No N/V, tenderness remains of left upper quadrant, unchanged from earlier in the shift. Educated pt on bedrest
orders for 2 hrs, Que drain, and clear liquid diet. Pt verbalizes understanding, call stern within reach, will monitor.
[2024-02-26] MEDS: LANOXIN 125 MCG PO (13:40)
--- NOTE | 2024-02-26 14:36 | W.PN.HOSP.TC ---
Today's Communication/Plan
-
see bold
Assessment / Plan
Assessment / Plan
HPI: 78 man comes to the ED after an outpatient CT scan revealed possible perforation of the bowel. He says that he has had ongoing abdominal pain for the past 2 weeks. The pain is described as pressure, wors around his bellybutton/left side,
non-radiating, without any alleviating factors, but worse when standing up. He Denies fever or chills, nausea, vomiting, or diarrhea. He states that he is having had normal bowel movements and had one today. He denies previous history of similar
symptoms, recent change in medications or diet or difficulty with urination. He does have a history of sarcoid and had complete heart block. He is pacer dependent and has 'had 7 pacemakers.' He was comfortable during my interview.
#Small bowel prior with fluid collection on CT concerning for abscess
Appreciate general surgery input
INR 1.77 today, s/p vit K 5 mg po 02/24, down from 2.42, was 2.52
S/p abdominal drain by IR 02/25, draining purulent appearing fluid
Continue IV Flagyl/Levaquin, f/u abd fluid culture
Clear liquid diet per surgery, trend fever and white count
#Paroxysmal atrial fibrillation on Coumadin
Continue amiodarone, Coreg
Resume Coumadin, trend INR
#History of dysphagia
Eats a chopped diet
#Glucose intolerance
Hold metformin since pt received contrast 02/22, sliding scale insulin
Resume metformin
#History of complete heart block
Has pacer defibrillator
#History of coronary artery disease/congestive heart failure
DVT prophylaxis�subcu Lovenox until INR therapeutic on Coumadin
Full Code
Total time spent to see the patient on the floor, examine the patient, review data and lab results, discuss treatment plan with patient, nursing staff around 50 minutes.
Physical Exam
General: No acute distress
HEENT: Normocephalic, Atraumatic, EOMI, MMM
Respiratory: Clear to Auscultation bilaterally
Cardiac: Normal S1/S2, Regular Rate and Rhythm
GI: Soft, tender at the mid left side, no masses guarding or rebound
+abd drain
Extremities: No Clubbing, Cyanosis, or Edema
Neuro: Nonfocal/Grossly Intact
Anticipated Discharge: 24 - 48 hours
Subjective/Interval History
-
Date of Service: February 26, 2024
Patient is abdominal soreness is tolerable. No fever, no nausea, no vomiting. No chest pain, no shortness of breath.
Objective Data
-
Labs:
Laboratory Results
02/26/24
08:09
WBC 11.3 H
Hgb 12.5 L
Hct 38.2 L
Plt Count 387
PT 20.5 H
INR 1.77
Sodium 136
Potassium 3.9
Chloride 109 H
Carbon Dioxide 23
BUN 14
Creatinine 0.9
Glucose 105 H
Calcium 9.4
Vital Signs:
Vital Signs
Temp Pulse Resp BP Pulse Ox
97.5 F 82 18 118/70 98
02/26/24 14:30 02/26/24 14:30 02/26/24 14:30 02/26/24 14:30 02/26/24 14:30
I&O
02/25/24 02/26/24 02/27/24
06:59 06:59 06:59
Intake Total 2290 / 2290 1940 / 1940 95 / 95
Output Total 3850 / 3850 1300 / 1300
Balance -1560 / -1560 640 / 640 95 / 95
[2024-02-26 18:00] LABS: Glucose - Point of Care 148 mg/dl (70-99)
[2024-02-26] MEDS: LOVENOX 40 MG SC (18:03)
[2024-02-26] MEDS: COUMADIN 2.5 MG PO (18:04)
[2024-02-26] MEDS: LEVAQUIN IV (21:51)
[2024-02-26 22:50] LABS: Glucose - Point of Care 201 mg/dl (70-99)
[2024-02-26] MEDS: LEVAQUIN 50 IV (23:26)
[2024-02-27] MEDS: FLAGYL 500 MG 100 IV ×3 (03:33→20:30)
[2024-02-27 03:37] VITALS: BP 116/71
--- NOTE | 2024-02-27 05:49 | W.PN.HOSP.TC ---
Today's Communication/Plan
-
cont abx
follow cultures
diet, drain care as per surgery
pain control
cont warfarin, daily INR checks
Assessment / Plan
Assessment / Plan
HPI: 78 man comes to the ED after an outpatient CT scan revealed possible perforation of the bowel. He says that he has had ongoing abdominal pain for the past 2 weeks. The pain is described as pressure, wors around his bellybutton/left side,
non-radiating, without any alleviating factors, but worse when standing up. He Denies fever or chills, nausea, vomiting, or diarrhea. He states that he is having had normal bowel movements and had one today. He denies previous history of similar
symptoms, recent change in medications or diet or difficulty with urination. He does have a history of sarcoid and had complete heart block. He is pacer dependent and has 'had 7 pacemakers.' He was comfortable during my interview.
#Small bowel prior with fluid collection on CT concerning for abscess
Appreciate general surgery input
INR 1.77 today, s/p vit K 5 mg po 02/24, down from 2.42, was 2.52
S/p abdominal drain by IR 02/25, draining purulent appearing fluid
Continue IV Flagyl/Levaquin, f/u abd fluid culture
Clear liquid diet advanced to full liquid as per surgery, trend fever and white count
#Paroxysmal atrial fibrillation on Coumadin
Continue amiodarone, Coreg
Cont Coumadin, trend INR
#History of dysphagia
Typically Eats a chopped diet
#Glucose intolerance
Metformin on hold since pt received contrast 02/22
sliding scale insulin
#History of complete heart block
Has pacer defibrillator
#History of coronary artery disease/congestive heart failure
DVT prophylaxis�subcu Lovenox until INR therapeutic on Coumadin
Full Code
Total time spent to see the patient on the floor, examine the patient, review data and lab results, discuss treatment plan with patient, nursing staff around 52 minutes.
Physical Exam
General: No acute distress
HEENT: Normocephalic, Atraumatic, EOMI, MMM
Respiratory: Clear to Auscultation bilaterally
Cardiac: Normal S1/S2, Regular Rate and Rhythm
GI: Soft, tender at the mid left side, no masses guarding or rebound
+abd drain
Extremities: No Clubbing, Cyanosis, or Edema
Neuro: Nonfocal/Grossly Intact
Anticipated Discharge: 24 - 48 hours
Subjective/Interval History
-
Date of Service: February 27, 2024
Reports overall feeling well. Tolerating diet so far. Reports Flatus but no bowel movement. No pain at rest.
Objective Data
-
Labs:
Laboratory Results
02/27/24
06:00
WBC Pending
Hgb Pending
Hct Pending
Plt Count Pending
PT Pending
INR Pending
Sodium Pending
Potassium Pending
Chloride Pending
Carbon Dioxide Pending
BUN Pending
Creatinine Pending
Glucose Pending
Calcium Pending
Vital Signs:
Vital Signs
Temp Pulse Resp BP Pulse Ox
98 F 82 19 116/71 97
02/27/24 03:37 02/27/24 03:37 02/27/24 03:37 02/27/24 03:37 02/27/24 03:37
I&O
02/25/24 02/26/24 02/27/24
06:59 06:59 06:59
Intake Total 2290 / 2290 1940 / 1940 1525 / 1525
Output Total 3850 / 3850 1300 / 1300 1817 / 1817
Balance -1560 / -1560 640 / 640 -292 / -292
[2024-02-27 06:00] VITALS: BMI 23.1
[2024-02-27 07:41] LABS: Hematocrit 38.6 % (39.0-52.0); Hemoglobin 12.8 g/dL (13.0-18.0); Mean Corp Hgb Conc. 33.2 g/dL (33.0-37.0); Mean Corpuscular Hgb 31.2 pg (27.0-31.0); Mean Corpuscular Volume 94.1 fL (80.0-94.0); Mean Platelet Volume 9.2 fL (7.4-10.4); Platelet Count 355 10^3/uL (130-400); Red Cell Dist. Width 13.2 % (11.5-14.5); White Blood Cell Count 8.3 10^3/uL (4.8-10.8)
[2024-02-27 07:51] LABS: INR 1.53; PT 18.2 Sec (11.4-14.6)
[2024-02-27 08:04] LABS: Glucose - Point of Care 104 mg/dl (70-99)
[2024-02-27 08:06] VITALS: BP 119/74
[2024-02-27] MEDS: COREG 6.25 MG PO ×2 (08:31→20:30)
[2024-02-27] MEDS: VITAMIN B-12 2500 MCG PO (08:31)
[2024-02-27] MEDS: THERAGRAN 1 TABLET PO (08:31)
[2024-02-27 08:53] LABS: Blood Urea Nitrogen 13 mg/dl (9-20); Calcium 9.5 mg/dl (8.4-10.2); Carbon Dioxide 20 mmol/L (22-30); Chloride 109 mmol/L (98-107); Estimated Creatinine Clearance 74 ml/min; Glucose 101 mg/dl (70-99); Potassium 3.9 mmol/L (3.5-5.1); Sodium 136 mmol/L (135-145); eGFR > 60.00
--- NOTE | 2024-02-27 09:14 | W.PN.GS2 ---
Addendum entered and electronically signed by Robibe Flores MD 02/27/24 10:30:
I saw and examined the patient independently.
The Operator Prefinish's note was reviewed and I agree with the note, assessment and plan except where noted below.
Comment: This is a 78-year-old male with a history of A-fib on Coumadin, CAD, diabetes, transabdominal prostatectomy who presents with a 3-week history of upper mid abdominal pain found to have mid small bowel abscess and phlegmon concerning for
perforated small bowel diverticulitis versus small bowel mass/malignancy now status post IR drain.
I did review his CT scan from February 2014 and no obvious diverticulum noted then.
Leukocytosis resolved, patient overall feeling better.
Prelim cultures with GPC's
Okay for full liquid diet, can advance as tolerated. Monitor for ileus.
Drain to bulb suction, irrigate with 10 cc saline daily.
Will continue nonoperative management for now.
Original Note:
Today's Communication / Plan
-
Continue drain
Full liquid diet
Assessment / Plan
-
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 CT showed
intraabdominal collection abutting the small bowel and abdominal wall. Unclear etiology although likely small bowel diverticulitis. Malignancy remains in differential.
AFVSS
Leukocytosis now resolved
PPD #1 IR drainage with fluid cx pending, preliminary with gram + rods/cocci
--Advance to FLD. High risk for ileus, follow for n/v/distention
--Drain care as per IR. Will consult CM to arrange VNA as he will likely be discharged with drain in place
--May ultimately require surgery pending course but no surgical intervention planned at this time
--Multimodal analgesics prn
--Continue antibiotics
--Medical management as per primary team
Subjective Data
-
Date of Service: February 27, 2024
Patient seen and examined at bedside with Dr. Philip. Arce n/v. Tolerating clears. Passing flatus, no stool for a few days. No fevers/chills.
Objective Data
-
Intake and Output
02/26/24 02/27/24 02/28/24
06:59 06:59 06:59
Intake Total 1940 / 1940 1525 / 1525
Output Total 1300 / 1300 1817 / 1817
Balance 640 / 640 -292 / -292
Intake:
Oral fluids 1590 / 1590 1080 / 1080
IV fluids (Total)
NSS / 85
IV piggybacks 350 / 350 350 / 350
Amount instilled into Drain (
Total)
Left Middle Abdomen Bernardo-
Roque A Placed in IR
Output:
Drain Output (Total)
Left Middle Abdomen Bernardo-
Roque A Placed in IR
Urine, Voided 1300 / 1300 1800 / 1800
Other:
Number of approximated MODERATE 1
amounts of urine
Number of approximated LARGE 2
amounts of urine
Vital Signs
Temp Pulse Resp BP Pulse Ox
97.4 F 82 18 119/74 98
02/27/24 08:06 02/27/24 08:06 02/27/24 08:06 02/27/24 08:06 02/27/24 08:06
Lab Results
02/27/24 07:16
02/27/24 07:16
Calcium 9.5 mg/dl (8.4-10.2) 02/27/24 07:16
Phosphorus 2.7 mg/dl (2.5-4.5) 02/26/24 08:09
Magnesium 1.9 mg/dl (1.6-2.3) 02/26/24 08:09
Total Bilirubin 0.7 mg/dl (0.2-1.3) 02/23/24 19:37
AST 20 U/L (17-59) 02/23/24 19:37
ALT 11 U/L (0-50) 02/23/24 19:37
Alkaline Phosphatase 38 U/L (38-126) 02/23/24 19:37
Total Protein 6.0 g/dl (6.3-8.2) L 02/23/24 19:37
Albumin 3.6 g/dl (3.5-5.0) 02/23/24 19:37
Physical Exam
-
NAD
ABD soft, tender to drain site, ND, IR drain with purulent dk grady fluid
--- NOTE | 2024-02-27 10:14 | CM ---
Patient seen bedside, reports no needs to CM at this time. CM offered VN to patient for drain care, patient declining. Patient reports he resides at home with his , feels they can manage drain care without VN. CM will continue to follow for
discharge planning needs.
Plan; home with , declining VN.
[2024-02-27 12:06] LABS: Glucose - Point of Care 144 mg/dl (70-99)
[2024-02-27] MEDS: LANOXIN 125 MCG PO (12:41)
[2024-02-27 12:59] VITALS: BP 113/69
[2024-02-27 15:45] VITALS: BP 111/61
[2024-02-27 17:12] LABS: Glucose - Point of Care 145 mg/dl (70-99)
[2024-02-27] MEDS: LOVENOX 40 MG SC (17:23)
[2024-02-27] MEDS: COUMADIN 2.5 MG PO (17:23)
--- NOTE | 2024-02-27 17:44 | PTCARENOTE ---
Pt has not had BM since 02/22. Bowel sounds are present and pt reports passing gas. Pt would not like to take miralax at this time. Recommended pt try prune juice.
[2024-02-27 20:15] VITALS: BP 105/61
[2024-02-27] MEDS: LEVAQUIN 50 IV (21:38)
[2024-02-27 21:48] LABS: Glucose - Point of Care 175 mg/dl (70-99)
[2024-02-27 23:16] VITALS: BP 112/66
[2024-02-28] MEDS: FLAGYL 500 MG 100 IV ×3 (04:19→19:27)
[2024-02-28 06:00] VITALS: BMI 23.3
--- NOTE | 2024-02-28 07:31 | W.PN.HOSP.TC ---
Today's Communication/Plan
-
cont abx
follow cultures
diet, drain care as per surgery
pain control
cont warfarin, daily INR checks
Assessment / Plan
Assessment / Plan
HPI: 78 man comes to the ED after an outpatient CT scan revealed possible perforation of the bowel. He says that he has had ongoing abdominal pain for the past 2 weeks. The pain is described as pressure, wors around his bellybutton/left side,
non-radiating, without any alleviating factors, but worse when standing up. He Denies fever or chills, nausea, vomiting, or diarrhea. He states that he is having had normal bowel movements and had one today. He denies previous history of similar
symptoms, recent change in medications or diet or difficulty with urination. He does have a history of sarcoid and had complete heart block. He is pacer dependent and has 'had 7 pacemakers.' He was comfortable during my interview.
#Small bowel prior with fluid collection on CT concerning for abscess
Appreciate general surgery input
INR 1.77 today, s/p vit K 5 mg po 02/24, down from 2.42, was 2.52
S/p abdominal drain by IR 02/25, draining purulent appearing fluid
Continue IV Flagyl/Levaquin, f/u abd fluid culture
Clear liquid diet gradually advanced to low residue as per surgery, trend fever and white count
CT vs drain study inpt vs outpt as per Surgery
#Paroxysmal atrial fibrillation on Coumadin
Continue amiodarone, Coreg
Cont Coumadin, coumadin dose increased from 2.5 mg to 5mg
trend INR
#History of dysphagia
Typically Eats a chopped diet
#Glucose intolerance
Metformin on hold since pt received contrast 02/22
sliding scale insulin
#History of complete heart block
Has pacer defibrillator
#History of coronary artery disease/congestive heart failure
DVT prophylaxis�subcu Lovenox until INR therapeutic on Coumadin
Full Code
Total time spent to see the patient on the floor, examine the patient, review data and lab results, discuss treatment plan with patient, nursing staff around 54 minutes.
Physical Exam
General: No acute distress
HEENT: Normocephalic, Atraumatic, EOMI, MMM
Respiratory: Clear to Auscultation bilaterally
Cardiac: Normal S1/S2, Regular Rate and Rhythm
GI: Soft, tender at the mid left side, no masses guarding or rebound
+abd drain
Extremities: No Clubbing, Cyanosis, or Edema
Neuro: Nonfocal/Grossly Intact
Anticipated Discharge: 24 - 48 hours
Subjective/Interval History
-
Date of Service: February 28, 2024
Reports feeling well. Tolerating diet. Had small bowel movement
Objective Data
-
Labs:
Laboratory Results
02/28/24
07:08
WBC Pending
Hgb Pending
Hct Pending
Plt Count Pending
PT Pending
INR Pending
Sodium Pending
Potassium Pending
Chloride Pending
Carbon Dioxide Pending
BUN Pending
Creatinine Pending
Glucose Pending
Calcium Pending
Vital Signs:
Vital Signs
Temp Pulse Resp BP Pulse Ox
98.1 F 81 18 112/66 98
02/27/24 23:16 02/27/24 23:16 02/27/24 23:16 02/27/24 23:16 02/27/24 23:16
I&O
02/27/24 02/28/24 02/29/24
06:59 06:59 06:59
Intake Total 1525 / 1525 1700 / 1700
Output Total 1817 / 1817 2530 / 2530
Balance -292 / -292 -830 / -830
[2024-02-28 07:57] LABS: Hematocrit 37.2 % (39.0-52.0); Hemoglobin 12.4 g/dL (13.0-18.0); Mean Corp Hgb Conc. 33.3 g/dL (33.0-37.0); Mean Corpuscular Hgb 31.1 pg (27.0-31.0); Mean Corpuscular Volume 93.2 fL (80.0-94.0); Mean Platelet Volume 9.2 fL (7.4-10.4); Platelet Count 364 10^3/uL (130-400); Red Blood Cell Count 3.99 10^6/uL (4.70-6.10); Red Cell Dist. Width 13.1 % (11.5-14.5); White Blood Cell Count 7.7 10^3/uL (4.8-10.8)
[2024-02-28 08:09] VITALS: BP 110/72
--- NOTE | 2024-02-28 08:11 | W.PN.GS2 ---
Today's Communication / Plan
-
--Advance to LRD. High risk for ileus, follow for n/v/distention
--Will need repeat imaging (CT vs drain study) inpatient versus outpatient
Assessment / Plan
-
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 CT showed
intraabdominal collection abutting the small bowel and abdominal wall. Unclear etiology although likely small bowel diverticulitis. Malignancy remains in differential.
AFVSS
Leukocytosis now resolved
PPD #2 IR drainage with fluid cx pending, preliminary with gram + rods/cocci
--Advance to LRD. High risk for ileus, follow for n/v/distention
--Drain care as per IR. Will consult CM to arrange VNA as he will likely be discharged with drain in place
--Will need repeat imaging (CT vs drain study) inpatient versus outpatient
--Continue antibiotics
--Medical management as per primary team
Subjective Data
-
Date of Service: February 28, 2024
No major complaints. Soreness at catheter insertion site, denies worse abdominal pain. No nausea or emesis. Passing flatus, no BM (chronic constipation). No fevers.
Objective Data
-
Intake and Output
02/27/24 02/28/24 02/29/24
06:59 06:59 06:59
Intake Total 1525 / 1525 1700 / 1700
Output Total 1817 / 1817 2530 / 2530
Balance -292 / -292 -830 / -830
Intake:
Oral fluids 1080 / 1080 1440 / 1440
IV fluids (Total) 85 / 85
NSS 85 / 85
IV piggybacks 350 / 350 250 / 250
Amount instilled into Drain ( 10 / 10 10 / 10
Total)
Left Middle Abdomen Bernardo-
Roque A Placed in IR
Output:
Drain Output (Total)
Left Middle Abdomen Bernardo-
Roque A Placed in IR
Urine, Voided 1800 / 1800 2525 / 2525
Vital Signs
Temp Pulse Resp BP Pulse Ox
97.8 F 81 18 110/72 98
02/28/24 08:09 02/28/24 08:09 02/28/24 08:09 02/28/24 08:09 02/28/24 08:09
Calcium 9.5 mg/dl (8.4-10.2) 02/27/24 07:16
Phosphorus 2.7 mg/dl (2.5-4.5) 02/26/24 08:09
Magnesium 1.9 mg/dl (1.6-2.3) 02/26/24 08:09
Total Bilirubin 0.7 mg/dl (0.2-1.3) 02/23/24 19:37
AST 20 U/L (17-59) 02/23/24 19:37
ALT 11 U/L (0-50) 02/23/24 19:37
Alkaline Phosphatase 38 U/L (38-126) 02/23/24 19:37
Total Protein 6.0 g/dl (6.3-8.2) L 02/23/24 19:37
Albumin 3.6 g/dl (3.5-5.0) 02/23/24 19:37
Physical Exam
-
Gen: NAD
Abd: soft, minimal tenderness around drain site, ND, non-peritoneal, IR drain with thick light brown output
[2024-02-28 08:19] LABS: Glucose - Point of Care 108 mg/dl (70-99)
[2024-02-28 08:32] LABS: Blood Urea Nitrogen 13 mg/dl (9-20); Calcium 9.4 mg/dl (8.4-10.2); Carbon Dioxide 22 mmol/L (22-30); Chloride 109 mmol/L (98-107); Estimated Creatinine Clearance 74 ml/min; Glucose 105 mg/dl (70-99); Magnesium 1.7 mg/dl (1.6-2.3); Phosphorus 3.1 mg/dl (2.5-4.5); Potassium 4.3 mmol/L (3.5-5.1); Sodium 136 mmol/L (135-145); eGFR > 60.00
[2024-02-28 08:33] LABS: INR 1.56; PT 18.5 Sec (11.4-14.6)
[2024-02-28] MEDS: COREG 6.25 MG PO ×2 (09:48→19:30)
[2024-02-28] MEDS: THERAGRAN 1 TABLET PO (09:48)
[2024-02-28] MEDS: VITAMIN B-12 2500 MCG PO (11:03)
--- NOTE | 2024-02-28 11:04 | CM ---
Patient seen bedside, discussed making VN referral for drain care. Patient reports he feels as though he does not need VN but would like to speak to the surgeon about it. CM discussed that surgeon consulted CM to discussed VN for drain care, patient
still reporting he does not feel he needs VN as his drain is only being emptied once a day. CM will continue to offer VN to patient. CM will continue to follow for discharge planning needs.
Plan; home no needs vs VN, patient declining VN at this time.
[2024-02-28 11:56] LABS: Glucose - Point of Care 113 mg/dl (70-99)
[2024-02-28] MEDS: LANOXIN 125 MCG PO (12:32)
[2024-02-28 15:19] VITALS: BP 96/62
[2024-02-28 17:04] LABS: Glucose - Point of Care 105 mg/dl (70-99)
[2024-02-28] MEDS: COUMADIN 5 MG PO (17:52)
[2024-02-28] MEDS: LOVENOX 40 MG SC (17:52)
[2024-02-28] MEDS: LEVAQUIN 100 IV (21:26)
[2024-02-28 22:35] LABS: Glucose - Point of Care 108 mg/dl (70-99)
[2024-02-28 23:26] VITALS: BP 123/74
[2024-02-29] MEDS: FLAGYL 500 MG 100 IV ×3 (03:15→20:55)
--- NOTE | 2024-02-29 07:02 | W.PN.HOSP.TC ---
Today's Communication/Plan
-
cont abx
diet, drain care, evaluation as per surgery IR
pain control
cont warfarin, daily INR checks
Assessment / Plan
Assessment / Plan
HPI: 78 man comes to the ED after an outpatient CT scan revealed possible perforation of the bowel. He says that he has had ongoing abdominal pain for the past 2 weeks. The pain is described as pressure, wors around his bellybutton/left side,
non-radiating, without any alleviating factors, but worse when standing up. He Denies fever or chills, nausea, vomiting, or diarrhea. He states that he is having had normal bowel movements and had one today. He denies previous history of similar
symptoms, recent change in medications or diet or difficulty with urination. He does have a history of sarcoid and had complete heart block. He is pacer dependent and has 'had 7 pacemakers.' He was comfortable during my interview.
#Small bowel prior with fluid collection on CT concerning for abscess
Appreciate general surgery input
INR 1.77 today, s/p vit K 5 mg po 02/24, down from 2.42, was 2.52
S/p abdominal drain by IR 02/25, draining purulent appearing fluid
Continue IV Flagyl/Levaquin, f/u abd fluid culture Enterococcus faecalis pansensitive
Clear liquid diet gradually advanced to low residue as per surgery, trend fever and white count
Drain care evaluation as per surgery IR
#Paroxysmal atrial fibrillation on Coumadin
Continue amiodarone, Coreg
Cont Coumadin, coumadin dose increased from 2.5 mg to 5mg, continue
trend INR
#History of dysphagia
Typically Eats a chopped diet
#Glucose intolerance
Metformin on hold since pt received contrast 02/22
A1c 6.5 borderline Diabetes
Sugars well controlled during stay, no insulin correction required
ok to discontinue routine FS at this time.
#History of complete heart block
Has pacer defibrillator
#History of coronary artery disease/congestive heart failure
DVT prophylaxis�subcu Lovenox until INR therapeutic on Coumadin
Full Code
Total time spent to see the patient on the floor, examine the patient, review data and lab results, discuss treatment plan with patient, nursing staff around 53 minutes.
Physical Exam
General: No acute distress
HEENT: Normocephalic, Atraumatic, EOMI, MMM
Respiratory: Clear to Auscultation bilaterally
Cardiac: Normal S1/S2, Regular Rate and Rhythm
GI: Soft, tender at the mid left side, no masses guarding or rebound
+abd drain
Extremities: No Clubbing, Cyanosis, or Edema
Neuro: Nonfocal/Grossly Intact
Anticipated Discharge: 24 - 48 hours
Subjective/Interval History
-
Date of Service: February 29, 2024
No acute distress. Tolerating diet. No new acute issues.
Objective Data
-
Labs:
Laboratory Results
02/29/24
06:56
WBC Pending
Hgb Pending
Hct Pending
Plt Count Pending
PT Pending
INR Pending
Sodium Pending
Potassium Pending
Chloride Pending
Carbon Dioxide Pending
BUN Pending
Creatinine Pending
Glucose Pending
Calcium Pending
Vital Signs:
Vital Signs
Temp Pulse Resp BP Pulse Ox
98.3 F 82 18 123/74 97
02/28/24 23:26 02/28/24 23:26 02/28/24 23:26 02/28/24 23:26 02/28/24 23:26
I&O
02/28/24 02/29/24 03/01/24
06:59 06:59 06:59
Intake Total 1700 / 1700 2335 / 2335
Output Total 2530 / 2530 1480 / 1480
Balance -830 / -830 855 / 855
[2024-02-29 07:23] VITALS: BP 131/76
[2024-02-29 07:27] LABS: INR 1.61
[2024-02-29 07:32] LABS: Hematocrit 36.8 % (39.0-52.0); Hemoglobin 12.4 g/dL (13.0-18.0); Mean Corp Hgb Conc. 33.7 g/dL (33.0-37.0); Mean Corpuscular Hgb 31.2 pg (27.0-31.0); Mean Corpuscular Volume 92.5 fL (80.0-94.0); Mean Platelet Volume 9.1 fL (7.4-10.4); Platelet Count 371 10^3/uL (130-400); Red Blood Cell Count 3.98 10^6/uL (4.70-6.10); Red Cell Dist. Width 13.1 % (11.5-14.5); White Blood Cell Count 7.2 10^3/uL (4.8-10.8)
[2024-02-29 07:49] LABS: Blood Urea Nitrogen 15 mg/dl (9-20); Calcium 9.6 mg/dl (8.4-10.2); Carbon Dioxide 25 mmol/L (22-30); Chloride 107 mmol/L (98-107); Estimated Creatinine Clearance 65 ml/min; Glucose 99 mg/dl (70-99); Magnesium 1.7 mg/dl (1.6-2.3); Phosphorus 3.1 mg/dl (2.5-4.5); Potassium 4.3 mmol/L (3.5-5.1); Sodium 136 mmol/L (135-145); eGFR > 60.00
[2024-02-29] MEDS: COREG 6.25 MG PO ×2 (07:59→20:55)
[2024-02-29] MEDS: VITAMIN B-12 2500 MCG PO (07:59)
[2024-02-29] MEDS: THERAGRAN 1 TABLET PO (07:59)
[2024-02-29 08:19] LABS: Glucose - Point of Care 109 mg/dl (70-99)
[2024-02-29 11:41] LABS: Glucose - Point of Care 185 mg/dl (70-99)
[2024-02-29] MEDS: LANOXIN 125 MCG PO (11:43)
--- NOTE | 2024-02-29 13:05 | W.PN.GS2 ---
Today's Communication / Plan
-
Tube check
Assessment / Plan
-
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 CT showed
intraabdominal collection abutting the small bowel and abdominal wall. Unclear etiology although likely small bowel diverticulitis. Malignancy remains in differential.
AFVSS
Leukocytosis now resolved
PPD #3 IR drainage with fluid cx growing enterococcus
Drain output has dropped off to zero
--Cont LRD.
--Tube check
--Drain care as per IR. Will consult CM to arrange VNA as he will likely be discharged with drain in place
--Continue antibiotics, consider tailoring to sensitivities, although clinically he is improving well on current regimen
--Medical management as per primary team
Subjective Data
-
Date of Service: February 29, 2024
AFVSS, feels well, leon diet, denies n/v
Objective Data
-
Intake and Output
02/28/24 02/29/24 03/01/24
06:59 06:59 06:59
Intake Total 1700 / 1700 2335 / 2335
Output Total 2530 / 2530 1480 / 1480
Balance -830 / -830 855 / 855
Intake:
Oral fluids 1440 / 1440 2120 / 2120
IV piggybacks 250 / 250 200 / 200
Amount instilled into Drain (
Total)
Left Middle Abdomen Bernardo-
Roque A Placed in IR
Output:
Drain Output (Total)
Left Middle Abdomen Bernardo-
Roque A Placed in IR
Urine, Voided 2525 / 2525 1475 / 1475
Vital Signs
Temp Pulse Resp BP Pulse Ox
97.5 F 78 16 131/76 96
02/29/24 07:23 02/29/24 11:43 02/29/24 07:23 02/29/24 07:59 02/29/24 07:50
Lab Results
02/29/24 06:56
02/29/24 06:56
Calcium 9.6 mg/dl (8.4-10.2) 02/29/24 06:56
Phosphorus 3.1 mg/dl (2.5-4.5) 02/29/24 06:56
Magnesium 1.7 mg/dl (1.6-2.3) 02/29/24 06:56
Total Bilirubin 0.7 mg/dl (0.2-1.3) 02/23/24 19:37
AST 20 U/L (17-59) 02/23/24 19:37
ALT 11 U/L (0-50) 02/23/24 19:37
Alkaline Phosphatase 38 U/L (38-126) 02/23/24 19:37
Total Protein 6.0 g/dl (6.3-8.2) L 02/23/24 19:37
Albumin 3.6 g/dl (3.5-5.0) 02/23/24 19:37
Physical Exam
-
Gen: NAD
Abd: soft, nt, drain with scant clear ss fluid
[2024-02-29 13:30] VITALS: BP 134/81; BP_SYST 80
[2024-02-29 13:59] VITALS: BP 127/76; BP_SYST 82
[2024-02-29 14:12] VITALS: BP 127/76
[2024-02-29 15:00] VITALS: BP 103/57
[2024-02-29 15:31] VITALS: BMI 23.4
[2024-02-29] MEDS: LOVENOX 40 MG SC (17:18)
[2024-02-29] MEDS: COUMADIN 5 MG PO (17:19)
[2024-02-29 17:37] LABS: Glucose - Point of Care 161 mg/dl (70-99)
[2024-02-29 21:20] LABS: Glucose - Point of Care 163 mg/dl (70-99)
[2024-02-29] MEDS: LEVAQUIN 100 IV (21:54)
[2024-02-29 23:20] VITALS: BP 106/66
[2024-03-01] MEDS: FLAGYL 500 MG 100 IV ×2 (04:23→11:32)
[2024-03-01 06:00] VITALS: BMI 23.4
[2024-03-01 06:21] LABS: Hematocrit 36.2 % (39.0-52.0); Hemoglobin 12.3 g/dL (13.0-18.0); Mean Corpuscular Hgb 31.1 pg (27.0-31.0); Mean Corpuscular Volume 91.6 fL (80.0-94.0); Mean Platelet Volume 9.2 fL (7.4-10.4); Platelet Count 360 10^3/uL (130-400); Red Blood Cell Count 3.95 10^6/uL (4.70-6.10); Red Cell Dist. Width 13.1 % (11.5-14.5); White Blood Cell Count 6.6 10^3/uL (4.8-10.8)
[2024-03-01 06:22] LABS: INR 1.95; PT 22.4 Sec (11.4-14.6)
--- NOTE | 2024-03-01 06:50 | W.PN.HOSP.TC ---
Addendum entered and electronically signed by Souleymane Brown MD 03/01/24 15:35:
Allergy to penicillin noted
will discharge with po levaquin and flagyll for 5 more days instead of Augmentin
Original Note:
Today's Communication/Plan
-
discharge
Assessment / Plan
Assessment / Plan
HPI: 78 man comes to the ED after an outpatient CT scan revealed possible perforation of the bowel. He says that he has had ongoing abdominal pain for the past 2 weeks. The pain is described as pressure, wors around his bellybutton/left side,
non-radiating, without any alleviating factors, but worse when standing up. He Denies fever or chills, nausea, vomiting, or diarrhea. He states that he is having had normal bowel movements and had one today. He denies previous history of similar
symptoms, recent change in medications or diet or difficulty with urination. He does have a history of sarcoid and had complete heart block. He is pacer dependent and has 'had 7 pacemakers.' He was comfortable during my interview.
#Small bowel prior with fluid collection on CT concerning for abscess
Appreciate general surgery input
INR 1.77 today, s/p vit K 5 mg po 02/24, down from 2.42, was 2.52
S/p abdominal drain by IR 02/25, draining purulent appearing fluid
Continue IV Flagyl/Levaquin, f/u abd fluid culture Enterococcus faecalis pansensitive will transition to Augmentin 7 more days on discharge
Clear liquid diet gradually advanced to low residue as per surgery, trend fever and white count
Surgery eval appreciated, stable for discharge with drain and outpatient follow-up
patient declines visiting nurse services, requesting education so that he and his can take care of drain on their own.
#Paroxysmal atrial fibrillation on Coumadin
Continue amiodarone, Coreg
Cont Coumadin, coumadin dose increased from 2.5 mg to 5mg
INR nearing goal currently 1.95, ok to resume home Coumadin dose on discharge.
#History of dysphagia
Typically Eats a chopped diet
#Glucose intolerance
Metformin on hold since pt received contrast 02/22
A1c 6.5 borderline Diabetes
Sugars well controlled during stay, no insulin correction required
ok to discontinue routine FS at this time.
#History of complete heart block
Has pacer defibrillator
#History of coronary artery disease/congestive heart failure
DVT prophylaxis�subcu Lovenox until INR therapeutic on Coumadin
Full Code
Declining visiting nurse service.
Medically stable for discharge home with outpatient follow up recommendations
Total Time Preparing Discharge ___50____ minutes including examination of the patient, summary of the hospital stay, instructions for continuing care to all relevant caregivers; and preparation of discharge records, prescriptions, and referral
forms if necessary.
Physical Exam
General: No acute distress
HEENT: Normocephalic, Atraumatic, EOMI, MMM
Respiratory: Clear to Auscultation bilaterally
Cardiac: Normal S1/S2, Regular Rate and Rhythm
GI: Soft, tender at the mid left side, no masses guarding or rebound
+abd drain
Extremities: No Clubbing, Cyanosis, or Edema
Neuro: Nonfocal/Grossly Intact
Anticipated Discharge: Today
Subjective/Interval History
-
Date of Service: March 01, 2024
Seen and examined at bedside in no acute distress sitting up comfortably in chair. denies any new acute issues at this time. Overall reports feeling well. Looking forward to going home
Objective Data
-
Labs:
Laboratory Results
03/01/24
05:54
WBC 6.6
Hgb 12.3 L
Hct 36.2 L
Plt Count 360
PT 22.4 H
INR 1.95
Sodium Pending
Potassium Pending
Chloride Pending
Carbon Dioxide Pending
BUN Pending
Creatinine Pending
Glucose Pending
Calcium Pending
Vital Signs:
Vital Signs
Temp Pulse Resp BP Pulse Ox
97.9 F 82 18 106/66 97
02/29/24 23:20 02/29/24 23:20 02/29/24 23:20 02/29/24 23:20 02/29/24 23:20
I&O
02/28/24 02/29/24 03/01/24
06:59 06:59 06:59
Intake Total 1700 / 1700 2335 / 2335 1540 / 1540
Output Total 2530 / 2530 1480 / 1480 820 / 820
Balance -830 / -830 855 / 855 720 / 720
[2024-03-01 06:55] LABS: Blood Urea Nitrogen 20 mg/dl (9-20); Calcium 9.8 mg/dl (8.4-10.2); Carbon Dioxide 22 mmol/L (22-30); Chloride 108 mmol/L (98-107); Estimated Creatinine Clearance 65 ml/min; Glucose 100 mg/dl (70-99); Magnesium 1.8 mg/dl (1.6-2.3); Phosphorus 3.4 mg/dl (2.5-4.5); Potassium 4.1 mmol/L (3.5-5.1); Sodium 136 mmol/L (135-145); eGFR > 60.00
[2024-03-01 07:02] LABS: Prealbumin (Transthyretin) 17.7 mg/dl (17.6-36.0)
[2024-03-01 07:15] VITALS: BP 125/72
--- NOTE | 2024-03-01 09:30 | W.PN.GS2 ---
Today's Communication / Plan
-
`
Assessment / Plan
-
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 CT
showed intraabdominal collection abutting the small bowel and abdominal wall. Unclear etiology although likely small bowel diverticulitis with contained mesenteric abscess/perforation
AFVSS
s/p IR drainage -follow-up IR study yesterday confirms fistulous communication with small bowel.
Patient otherwise doing well and tolerated dietary advancement
Plan: Stable for discharge from surgical standpoint
IR drain will have to be maintained and follow-up studies will be arranged for to monitor small bowel fistula
transition to PO abx on dc
pt will be following up with Dr. Ortega for further care
Subjective Data
-
Date of Service: March 01, 2024
Patient seen and examined.
Occasional mild gas cramps but no significant abdominal pain.
No nausea
Tolerating low residue diet
Positive flatus and occasional small bowel movement
Objective Data
-
Intake and Output
02/29/24 03/01/24 03/02/24
06:59 06:59 06:59
Intake Total 2335 / 2335 2019
Output Total 1480 / 1480 2870 / 2870
Balance 855 / 855 -850 / -850
Intake:
Oral fluids 2120 / 2120 192 / 1920
IV piggybacks 200 / 200 100 / 100
Amount instilled into Drain (
Total)
Left Middle Abdomen Bernardo-
Roque A Placed in IR
Output:
Drain Output (Total)
Left Middle Abdomen Bernardo-
Roque A Placed in IR
Urine, Voided 1475 / 1475 2850 / 2850
Vital Signs
Temp Pulse Resp BP Pulse Ox
98.2 F 84 16 125/72 98
03/01/24 07:15 03/01/24 07:15 03/01/24 07:15 03/01/24 07:15 03/01/24 07:15
Lab Results
03/01/24 05:54
03/01/24 05:54
Calcium 9.8 mg/dl (8.4-10.2) 03/01/24 05:54
Phosphorus 3.4 mg/dl (2.5-4.5) 03/01/24 05:54
Magnesium 1.8 mg/dl (1.6-2.3) 03/01/24 05:54
Total Bilirubin 0.7 mg/dl (0.2-1.3) 02/23/24 19:37
AST 20 U/L (17-59) 02/23/24 19:37
ALT 11 U/L (0-50) 02/23/24 19:37
Alkaline Phosphatase 38 U/L (38-126) 02/23/24 19:37
Total Protein 6.0 g/dl (6.3-8.2) L 02/23/24 19:37
Albumin 3.6 g/dl (3.5-5.0) 02/23/24 19:37
Physical Exam
-
NAD AAOx3
ABD: soft, ND, Minimal tenderness only at drain site, no R/R/G
MARY ANN with negligible output
[2024-03-01] MEDS: COREG 6.25 MG PO (10:00)
[2024-03-01] MEDS: VITAMIN B-12 2500 MCG PO (10:01)
[2024-03-01] MEDS: THERAGRAN 1 TABLET PO (10:01)
[2024-03-01] MEDS: LANOXIN 125 MCG PO (11:33)
--- NOTE | 2024-03-01 13:52 | CM ---
met with patient and at bedside.he is still declining home care for his drain.seen by nutrition and patient would like them to return so he can ask some additional questions.spoke with nursing.patient signed imm letter.
--- NOTE | 2024-03-01 14:47 | PTCARENOTE ---
Patient and educated on how to do dressing change on drain. Demonstrated changing of dressing. Educated on signs and symptoms of infection. Both patient and verbalize understanding of education.
[2024-03-01 15:10] VITALS: BP 121/89
--- NOTE | 2024-03-01 15:57 | W.DCSUMMARY ---
Discharge Summary
Discharge Data
Date of Admission: 02/23/24
Date of Discharge: 03/01/24
-
Pending Results: Yes
Additional Pending Results:
transferrin
Discharge Plan
-
Patient Disposition: Home (Routine Discharge)
Discharge Diagnosis/Procedures: Small bowel fistula, Diverticulitis, Intra-abdomen abscess drain placed, paroxysmal atrial fibrillation on Coumadin, Borderline Diabetes, Complete Heart Block status post pacer defibrillator
Condition: Good
Diet: Low Residue
Additional Diets: Ok to advance diet as tolerated
Activity: No strenuous activity
Driving Restrictions: As prior to admission
Bathing Restrictions: OK to Shower
Blood Work: Please repeat INR on Tuesday03/05/24 with results to be forwarded to your primary care provider and animated cartoons painter. Script has been provided to facilitate.
Other Services: VN
Wound Care: Flush your drain daily with 5ml of sterile saline. Ok to shower. Cover drain with dry gauze and change daily or as needed.
Activity Restrictions/Additional Instructions:
Call your surgeon if you have fevers >100.5, nausea with vomiting or worsening abdominal pain
Recommend introducing 1-2 supplement shakes (boost/ensure/or similar) per day to increase your nutrition levels. If not palatable, try over ice.
Instructions: How to Keep Track of Your Drainage
Referrals:
Davion Ortega MD [Active] - in two weeks
Mark Donnelly MD [Family Provider] - in one week
Prescriptions:
New
sodium chloride 0.9 % (flush) [Normal Saline Flush] Syringe
5 ml IV DAILY Qty: 150 0RF
Rx Instructions:
Flush drain daily with 5ml of normal saline
metronidazole 500 mg Tablet
500 mg PO TID 5 Days Qty: 15 0RF
levofloxacin 500 mg Tablet
500 mg PO DAILY 5 Days Qty: 5 0RF
Continued
digoxin [Digitek] 0.125 MG tablet
0.125 mg PO DAILY
fenofibrate nanocrystallized 145 MG tablet
145 mg PO DAILY
carvedilol 6.25 mg tablet
6.25 mg PO BID
irbesartan-hydrochlorothiazide 150-12.5 mg tablet
1 tab PO DAILY
metformin 1,000 mg tablet
1,000 mg PO DAILY
warfarin 5 mg tablet
2.5 mg PO HS
Patient Comments:
02/23/2024, dose changed as of roughly 2 days ago per pt.; since starting abx., pt. instructed to take 2.5 mg once a day; however, before starting abx. pt. took 5 mg MoWeFr@2200 and 2.5 mg SuTuThSa@2200.
cyanocobalamin (vitamin B-12) 2,500 mcg Tablet, Sublingual
2,500 mcg SUBLINGUAL DAILY
polyethylene glycol 3350 [Miralax] 17 gram Powder In Packet
17 g PO DAILY PRN (Reason: constipation)
jmfjtnsrtuwp-jzalfeva-kytszr Tablet
1 tab PO DAILY
krill oil 750 mg capsule
750 mg PO DAILY
Discontinued
metronidazole 500 mg Tablet
500 mg PO TID
Patient Comments:
02/23/2024, filled on 02/22/2024 and instructed to take one tablet TID for 7 days.
levofloxacin 500 mg Tablet
500 mg PO DAILY
Patient Comments:
02/23/2024, filled on 02/22/2024 and instructed to take one tablet daily for 7 days.
Discharge Orders:
Discharge Patient (As Directed); Ordered 03/01/24
Ordered By: Souleymane Brown
Discharge Date and Time
Print Language: ESTONIAN
[2024-03-01] MEDS: FLAGYL 500 MG PO (16:13)
--- NOTE | 2024-03-01 16:57 | PTCARENOTE ---
IV removed. Tele removed. Reviewed discharge instructions with and patient. Both verbalize understanding and deny questions. Patient left via wheelchair with staff escort.
[2024-03-03 04:12] LABS: Transferrin 185 mg/dL (200-360)
== END 2024-03-01 17:07 | disposition home or self-care (01) | DRG 392 ==
LOC: 4 EAST ACU 22:40
PROVIDERS: Family Medicine; Radiology Vascular & Interventional Radiology; ADMITTING PHYSICIAN Internal Medicine; ATTENDING PHYSICIAN Internal Medicine; CONSULT PHYSICIAN Surgery; EMERGENCY PHYSICIAN Emergency Medicine; FAMILY PHYSICIAN Internal Medicine
PROC: 0D9 Gastrointestinal System, Drainage (ICD-10-PCS; 2024-02-29)
DX: K57.80 Diverticulitis of intestine, part unspecified, with perforation and abscess without bleeding (principal); I44.2 Atrioventricular block, complete; I48.0 Paroxysmal atrial fibrillation; I25.10 Atherosclerotic heart disease of native coronary artery without angina pectoris; I11.0 Hypertensive heart disease with heart failure; I50.9 Heart failure, unspecified; Z88.0 Allergy status to penicillin
CPT/HCPCS: 49406; 49424; 74018; 74177; 76080; 80048; 80053; 80162; 82962; 83036; 83605; 83735; 84100; 84134; 84466; 85025; 85027; 85610; 87040; 87070; 87077; 87186; 87205; 96365; 99152; 99153; 99285; Q9967

== ENCOUNTER → 2024-03-14 12:46 | Outpatient (REF) | payer MEDICARE, SELFPAY | LOC: RADI 12:46 | PROVIDERS: ATTENDING PHYSICIAN Surgery; FAMILY PHYSICIAN Internal Medicine | DX: K65.1 Peritoneal abscess (principal); K63.2 Fistula of intestine | CPT/HCPCS: 49424; 76080 ==

== ENCOUNTER → 2024-03-27 15:36 | Outpatient (REF) | payer MEDICARE, SELFPAY | LOC: HWRAD 15:36 | PROVIDERS: ATTENDING PHYSICIAN Internal Medicine | DX: M54.10 Radiculopathy, site unspecified (principal) | CPT/HCPCS: 72131 ==

== ENCOUNTER → 2024-04-04 11:40 | Outpatient (REF) | payer MEDICARE, SELFPAY | LOC: HWRAD 11:40 | PROVIDERS: ATTENDING PHYSICIAN Otolaryngology; FAMILY PHYSICIAN Internal Medicine | DX: H90.3 Sensorineural hearing loss, bilateral (principal) | CPT/HCPCS: 70470; Q9967 ==

== ENCOUNTER → 2024-05-14 08:52 | Outpatient (REF) | payer MEDICARE, SELFPAY | LOC: REG 08:52 | PROVIDERS: ATTENDING PHYSICIAN Psychiatry & Neurology Neurology; FAMILY PHYSICIAN Internal Medicine | DX: Z01.818 Encounter for other preprocedural examination (principal); D68.32 Hemorrhagic disorder due to extrinsic circulating anticoagulants | CPT/HCPCS: 36415; 85610 ==

== ENCOUNTER → 2024-07-21 07:57 | Outpatient (REF) | payer MEDICARE, SELFPAY ==
[2024-07-21 09:08] LABS: INR 1.17; PT 14.7 Sec (11.4-14.6)
== END ==
LOC: REG 07:57
PROVIDERS: ATTENDING PHYSICIAN Psychiatry & Neurology Neurology; FAMILY PHYSICIAN Internal Medicine
DX: Z79.01 Long term (current) use of anticoagulants (principal)
CPT/HCPCS: 36415; 85610

== ENCOUNTER → 2024-12-03 08:31 | Outpatient (REF) | payer MEDICARE, SELFPAY ==
[2024-12-03 10:11] LABS: INR 1.11; PT 14.6 Sec (11.4-14.6)
== END ==
LOC: REG 08:31
PROVIDERS: ATTENDING PHYSICIAN Psychiatry & Neurology Neurology
DX: Z79.01 Long term (current) use of anticoagulants (principal)
CPT/HCPCS: 36415; 85610